=== PATIENT | female | born 1990 | race American Indian/Alaskan Native ===

== ENCOUNTER 2017-07-14 09:17 | Emergency (ER) | payer SELFPAY ==
[2017-07-14 12:21] LABS: Basophils % (Auto) 0.3 % (0.0-1.8); Eosinophils # (Auto) 0.1 K/mm3 (0.0-0.4); Hematocrit 36.3 % (30.3-42.9); Hemoglobin 12.1 gm/dl (10.1-14.3); Lymphocytes # (Auto) 1.3 K/mm3 (1.2-5.4); Lymphocytes % (Auto) 16.9 % (13.4-35.0); Mean Corpuscular HGB Conc 33 % (30-34); Mean Corpuscular Hemoglobin 27 pg (28-32); Mean Corpuscular Volume 80 fl (79-97); Monocytes # (Auto) 0.5 K/mm3 (0.0-0.8); Monocytes % (Auto) 6.9 % (0.0-7.3); Platelet Count 258 K/mm3 (140-440); Red Blood Count 4.53 M/mm3 (3.65-5.03); Red Cell Distribution Width 13.2 % (13.2-15.2)
[2017-07-14 12:56] LABS: Bacteria,Urine 1+ /HPF (Negative); Bilirubin,Urine MOD (Negative); Blood,Urine NEG (Negative); Color,Urine Amber (Yellow); Mucus,Urine 3+ /HPF; Nitrite,Urine NEG (Negative); White Blood Cell Casts,Urine 5 /LPF
[2017-07-14 13:02] LABS: Ictotest,Urine Positive (Negative)
[2017-07-14 14:54] LABS: Alanine Aminotransferase 18 units/L (7-56); Albumin 4.3 g/dL (3.9-5); BUN/Creatinine Ratio 13; Blood Urea Nitrogen 8 mg/dL (7-17); Calcium 9.8 mg/dL (8.4-10.2); Hemolysis Index 5
[2017-07-14] MEDS ORDERED: NACL 0.9% 1000 ML 1,000 ML IV ONE (19:33)
[2017-07-14] MEDS ORDERED: PHENERGAN PR ONE (19:33)
[2017-07-14 19:35] VITALS: BP 116/75
--- NOTE | 2017-07-14 20:08 | Emergency Department Report ---
ED General Adult HPI - General Chief complaint: Nausea/Vomiting/Diarrhea Stated complaint: MORNING SICKNESS 13 WKS PREG Time Seen by Provider: 07/14/17 19:10 Source: patient Mode of arrival: Ambulatory Limitations: No Limitations - History of Present Illness Initial comments: Patient is a 27 y/o -[place] female who presents for nausea and vomiting 13 weeks that she is 13 weeks patient is G7 P 3 A0 with 3 miscarriages patient states nausea and vomiting his normal course for her pregnancies however has not seen QUALITY CONTROL COORDINATOR this daily multiple episodes for past 13 weeks patient currently taken Zofran and Phenergan by mouth every this week unable to keep those down there is no fever don't chills no abdominal pain except occasional cramping no back pain no vaginal bleeding no dizziness no lightheadedness no shortness of breath, patient denies abnormal vaginal discharge no pelvic pain, last by mouth intake 2 hours ago with nausea vomiting Onset/Timin -: week(s) Radiation: abdomen Severity scale (0 -10): 4 Quality: other (n/v ) Consistency: intermittent Improves with: none Worsens with: none Associated Symptoms: nausea/vomiting. denies: chest pain, cough, fever/chills, loss of appetite, malaise, rash, seizure, shortness of breath, syncope, weakness Treatments Prior to Arrival: none - Related Data Previous Rx's Medication Instructions Recorded Last Taken Type Promethazine HCl [Phenergan SUPPOS] 25 mg RC TID PRN #20 supp.rect 07/14/17 Unknown Rx Allergies Allergy/AdvReac Type Severity Reaction Status Date / Time No Known Allergies Allergy Unverified 07/14/17 10:12 ED Review of Systems ROS: Stated complaint: MORNING SICKNESS 13 WKS PREG Other details as noted in HPI Constitutional: denies: chills, fever Eyes: denies: eye pain, eye discharge, vision change ENT: denies: ear pain, throat pain Respiratory: denies: cough, shortness of breath, wheezing Cardiovascular: denies: chest pain, palpitations Endocrine: no symptoms reported Gastrointestinal: abdominal pain, nausea, vomiting. denies: diarrhea, constipation, hematemesis, melena, hematochezia Genitourinary: denies: urgency, dysuria, discharge Musculoskeletal: denies: back pain, joint swelling, arthralgia Skin: denies: rash, lesions Neurological: denies: headache, weakness, paresthesias Psychiatric: denies: anxiety, depression Hematological/Lymphatic: denies: easy bleeding, easy bruising ED Past Medical Hx - Past Medical History Previous Medical History?: Yes Additional medical history: Hyperemesis gravidarum, Miscarriage x 3, Vaginal delivery x 3 - Surgical History Past Surgical History?: No - Social History Smoking Status: Never Smoker Substance Use Type: Prescribed - Medications Home Medications: Home Medications Medication Instructions Recorded Confirmed Last Taken Type Promethazine HCl [Phenergan SUPPOS] 25 mg RC TID PRN #20 supp.rect 07/14/17 Unknown Rx ED Physical Exam - General Limitations: No Limitations General appearance: alert, in no apparent distress - Head Head exam: Present: atraumatic, normocephalic - Eye Eye exam: Present: normal appearance - ENT ENT exam: Present: mucous membranes moist - Neck Neck exam: Present: normal inspection - Respiratory Respiratory exam: Present: normal lung sounds bilaterally. Absent: respiratory distress, chest wall tenderness - Cardiovascular Cardiovascular Exam: Present: regular rate, normal rhythm. Absent: systolic murmur, diastolic murmur, rubs, gallop - GI/Abdominal GI/Abdominal exam: Present: soft, normal bowel sounds. Absent: distended, tenderness, guarding, rebound, rigid, bruit, hernia - Rectal Rectal exam: Present: deferred - Extremities Exam Extremities exam: Present: normal inspection - Back Exam Back exam: Present: normal inspection, full ROM. Absent: tenderness, CVA tenderness (R), muscle spasm, paraspinal tenderness, vertebral tenderness, rash noted - Neurological Exam Neurological exam: Present: alert, oriented X3, CN II-XII intact, normal gait, reflexes normal - Psychiatric Psychiatric exam: Present: normal affect, normal mood - Skin Skin exam: Present: warm, dry, intact, normal color. Absent: rash ED Course Vital Signs 07/14/17 07/14/17 07/14/17 10:12 16:03 19:22 Temperature 98.1 F 97 F L Pulse Rate 94 H 80 91 H Respiratory 20 20 18 Rate Blood Pressure 125/81 116/75 Blood Pressure 140/80 [Left] O2 Sat by Pulse 98 100 98 Oximetry ED Medical Decision Making - Lab Data Result diagrams: 07/14/17 11:55 07/14/17 11:55 Laboratory Tests 07/14/17 07/14/17 07/14/17 11:55 11:55 Unknown WBC 7.4 RBC 4.53 Hgb 12.1 Hct 36.3 MCV 80 MCH 27 L MCHC 33 RDW 13.2 Plt Count 258 Lymph % (Auto) 16.9 [place] % (Auto) 6.9 Eos % (Auto) 1.0 Baso % (Auto) 0.3 Lymph # 1.3 [place] # 0.5 Eos # 0.1 Baso # 0.0 Seg Neutrophils % 74.9 H Seg Neutrophils # 5.6 Sodium 139 Potassium 3.3 L Chloride 94.9 L Carbon Dioxide 22 Anion Gap 25 BUN 8 Creatinine 0.6 L Estimated GFR > 60 BUN/Creatinine Ratio 13 Glucose 88 Calcium 9.8 Total Bilirubin 1.10 AST 25 ALT 18 Alkaline Phosphatase 79 Total Protein 8.1 Albumin 4.3 Albumin/Globulin Ratio 1.1 Urine Color Princess Urine Turbidity Cloudy Urine pH 5.0 Ur Specific [place] 1.034 H Urine Protein 100 mg/dl Urine Glucose (UA) 50 Urine Ketones 80 Urine Blood Neg Urine Nitrite Neg Urine Bilirubin Mod Urine Ictotest Positive Urine Urobilinogen 4.0 Ur Leukocyte Esterase Neg Urine WBC (Auto) 18.0 H Urine RBC (Auto) 3.0 U Epithel Cells (Auto) 12.0 Urine Bacteria (Auto) 1+ WBC Casts 5 Urine Mucus 3+ - Radiology Data Radiology results: report reviewed, image reviewed US OB <14 weeks, Live IUP 14 weeks gestation - Medical Decision Making Patient is a 27 y/o -[place] female who presents for nausea and vomiting 13 weeks that she is 13 weeks patient is G7 P 3 A0 with 3 miscarriages patient states nausea and vomiting his normal course for her pregnancies however has not seen QUALITY CONTROL COORDINATOR this daily multiple episodes for past 13 weeks patient currently taken Zofran and Phenergan by mouth every this week unable to keep those down there is no fever don't chills no abdominal pain except occasional cramping no back pain no vaginal bleeding no dizziness no lightheadedness no shortness of breath, patient denies abnormal vaginal discharge no pelvic pain, last by mouth intake 2 hours ago with nausea vomiting. exam: pt appears well well hydrated abd: BS normal, large round soft nontender no rebound no bruit no palpable , plan: hydrate, cmp, cbc, ua, hcg, phenergan supp. reevaluate. 2138: reevaluation pt now tolerate po intake without n/v at this time, cpk normal, US OB <14 week, gestational age 14 weeks gestation. plan: phenergan supp. follow up with QUALITY CONTROL COORDINATOR Luis Felipe Katz in 2-3 days pt verbalized agreement and understanding of same. pt for dc to self in stable condition at this time. Critical care attestation.: If time is entered above; I have spent that time in minutes in the direct care of this critically ill patient, excluding procedure time. ED Disposition Clinical Impression: Nausea and vomiting during Disposition: DC-01 TO HOME OR SELFCARE Is pt being admited?: No Does the pt Need Aspirin: No Condition: Stable Instructions: Acute Nausea and Vomiting (ED) Prescriptions: Promethazine HCl [Phenergan SUPPOS] 25 mg RC TID PRN #20 supp.rect PRN Reason: nausea and vomiting Referrals: NO KATZ MD [Staff Physician] - 3-5 Days Forms: Work/School Release Form(ED) Time of Disposition: 21:53
--- NOTE | 2017-07-14 22:06 | Ultrasound Report ---
FINAL REPORT PROCEDURE: US OB < = 14 WEEKS FETUS TECHNIQUE: Real-time transabdominal sonography of the uterus, placenta, amniotic fluid, adnexa, and fetus was performed with image documentation. Measurements were obtained to determine age/size. M-mode Doppler was used to document heartbeat. CPT 05524 HISTORY: abdominal pain 13 weeks COMPARISON: No prior studies are available for comparison. FINDINGS: CRL: 81 mm, which corresponds to a gestational age of: 14 weeks, 0 days. Yolk Sac: Normal. Embryonic Cardiac Activity: 149 bpm Gestational Sac: Normal. Amniotic fluid: Normal. Cervix: Transabdominal length is 4.1 centimeters Right Ovary: Normal. Left Ovary: Not well visualized Estimated delivery date: 01/12/18 Small sonolucency is noted in the placenta, measuring 1.1 x 0.4 x 0.8 centimeters. IMPRESSION: Single live intrauterine gestation at approximately 14 weeks 0 days. EDC by US 01/12/2018
== END 2017-07-14 22:00 | disposition home or self-care (01) ==
LOC: ED 09:17
DX: O26.891 Other specified pregnancy related conditions, first trimester (principal); O21.9 Vomiting of pregnancy, unspecified; Z3A.13 13 weeks gestation of pregnancy
CPT/HCPCS: 36415; 76801; 80053; 81001; 82550; 84702; 85025; 96360; 99284; J7030